=== PATIENT | male | born 1950 | race Caucasian/White ===

== ENCOUNTER 2021-04-12 21:07 | Inpatient (IN) | payer MEDICARE ==
[2021-04-12] MEDS ORDERED: Albuterol Sulfate 2.5 mg/3 ml Neb NEB PRN (23:39)
[2021-04-12] MEDS ORDERED: Apixaban 5 MG TAB PO SCH (23:45)
[2021-04-12] MEDS ORDERED: Furosemide 100 MG/10 ML VIAL SLOW IVP SCH (23:45)
[2021-04-13 00:44] LABS: INR-International Normal Ratio 0.9; PTT 23.9 sec (22.0-33.0); Prothrombin Time 10.3 sec (9.5-12.1)
[2021-04-13 00:46] LABS: Magnesium 2.3 mg/dL (1.6-2.6)
[2021-04-13 00:53] LABS: Troponin I 0.019 ng/mL (< 0.028)
[2021-04-13 04:17] LABS: #Eosinphils 0.2 10x3/uL (0.0-0.5); #Monocytes 1.1 10x3/uL (0.0-1.1); #Neutrophils 6.3 10x3/uL (1.5-8.4); %Basophils 0.4 % (0.0-2.0); %Eosinophils 1.9 % (0.0-6.0); %Lymphocytes 18.4 % (18.0-47.0); %Monocytes 11.8 % (0.0-10.0); %Neutrophils 66.6 % (40.0-75.0); Hemoglobin 13.1 g/dL (13.5-17.5); Mean Corpuscular Hemoglobin 28.5 pg (27.0-33.0); Mean Corpuscular Volume 91.9 fl (81.2-95.1); Mean Platelet Volume 10.4 fl (7.4-10.4); Platelet Count 218 10x3/uL (150-450); RBC Distribution Width 14.6 % (11.5-14.5); Red Blood Cell (RBC) Count 4.59 10x6/uL (4.32-5.72); White Blood Cell (WBC) Count 9.4 10x3/uL (3.5-10.5)
[2021-04-13 04:22] LABS: Anion Gap 15 mmol/L (10-20); BUN (Urea Nitrogen) 31 mg/dL (8.4-25.7); Calc. Creatinine Clearance 139 mL/min (70-130); Calcium 9.5 mg/dL (7.8-10.44); Carbon Dioxide 34 mmol/L (23-31); Chloride 96 mmol/L (98-107); Glucose 144 mg/dL (80-115); Potassium 4.4 mmol/L (3.5-5.1); Sodium 141 mmol/L (136-145)
[2021-04-13 04:30] LABS: Troponin I 0.018 ng/mL (< 0.028)
[2021-04-13] MEDS ORDERED: Lorazepam 2 MG/ML VIAL SLOW IVP SCH ×2 (05:15→05:30)
[2021-04-13] MEDS: Furosemide 100 MG/10 ML VIAL SLOW IVP SCH ×2 (05:32→15:08)
[2021-04-13 07:01] VITALS: BMI 47.8
[2021-04-13] MEDS: Carvedilol 6.25 MG TAB PO SCH ×2 (08:11→17:32)
[2021-04-13] MEDS: busPIRone HCl 15 MG TAB PO SCH ×2 (08:11→21:05)
[2021-04-13] MEDS: Amlodipine 10 MG TAB PO SCH (08:11)
[2021-04-13] MEDS: Aspirin Chewable 81 MG TAB PO SCH (08:11)
[2021-04-13] MEDS: Potassium Chloride 20 MEQ TAB PO SCH ×2 (08:11→17:32)
[2021-04-13] MEDS: Apixaban 5 MG TAB PO SCH ×2 (08:12→21:05)
[2021-04-13] MEDS: Lisinopril 2.5 MG TAB PO SCH (08:12)
[2021-04-13 11:22] LABS: #Eosinphils 0.1 10x3/uL (0.0-0.5); #Monocytes 1.2 10x3/uL (0.0-1.1); #Neutrophils 5.8 10x3/uL (1.5-8.4); %Basophils 0.5 % (0.0-2.0); %Eosinophils 1.6 % (0.0-6.0); %Lymphocytes 17.8 % (18.0-47.0); %Monocytes 13.3 % (0.0-10.0); %Neutrophils 66.2 % (40.0-75.0); Hemoglobin 12.7 g/dL (13.5-17.5); Mean Corpuscular HGB CONC 30.4 g/dL (32.0-36.0); Mean Corpuscular Hemoglobin 28.4 pg (27.0-33.0); Mean Corpuscular Volume 93.5 fl (81.2-95.1); Mean Platelet Volume 10.2 fl (7.4-10.4); Platelet Count 198 10x3/uL (150-450); RBC Distribution Width 14.6 % (11.5-14.5); Red Blood Cell (RBC) Count 4.47 10x6/uL (4.32-5.72); White Blood Cell (WBC) Count 8.8 10x3/uL (3.5-10.5)
[2021-04-13 11:34] LABS: Magnesium 2.4 mg/dL (1.6-2.6)
[2021-04-13] MEDS ORDERED: Metolazone 5 MG TAB PO SCH (13:00)
[2021-04-13] MEDS ORDERED: Metolazone 2.5 MG TAB ONE (13:12)
[2021-04-13] MEDS ORDERED: ALPRAZolam 0.25 MG TAB PO SCH (20:00)
[2021-04-14 05:31] LABS: Anion Gap 15 mmol/L (10-20); BUN (Urea Nitrogen) 34 mg/dL (8.4-25.7); Calc. Creatinine Clearance 113 mL/min (70-130); Calcium 9.5 mg/dL (7.8-10.44); Carbon Dioxide 37 mmol/L (23-31); Chloride 91 mmol/L (98-107); Glucose 184 mg/dL (80-115); Potassium 4.2 mmol/L (3.5-5.1); Sodium 139 mmol/L (136-145)
[2021-04-14] MEDS: Furosemide 100 MG/10 ML VIAL SLOW IVP SCH ×2 (06:18→15:25)
[2021-04-14 08:46] LABS: #Eosinphils 0.2 10x3/uL (0.0-0.5); #Monocytes 1.2 10x3/uL (0.0-1.1); #Neutrophils 6.3 10x3/uL (1.5-8.4); %Basophils 0.3 % (0.0-2.0); %Eosinophils 1.9 % (0.0-6.0); %Lymphocytes 19.2 % (18.0-47.0); Mean Corpuscular HGB CONC 30.7 g/dL (32.0-36.0); Mean Corpuscular Hemoglobin 28.3 pg (27.0-33.0); Mean Corpuscular Volume 92.1 fl (81.2-95.1); Platelet Count 226 10x3/uL (150-450); RBC Distribution Width 14.4 % (11.5-14.5); Red Blood Cell (RBC) Count 4.95 10x6/uL (4.32-5.72); White Blood Cell (WBC) Count 9.6 10x3/uL (3.5-10.5)
[2021-04-14 08:56] LABS: BUN (Urea Nitrogen) 33 mg/dL (8.4-25.7); Calc. Creatinine Clearance 122 mL/min (70-130); Calcium 10.1 mg/dL (7.8-10.44); Glucose 138 mg/dL (80-115); Magnesium 2.5 mg/dL (1.6-2.6)
[2021-04-14 08:57] LABS: Magnesium 2.4 mg/dL (1.6-2.6)
[2021-04-14 09:03] LABS: Anion Gap 16 mmol/L (10-20); Carbon Dioxide 39 mmol/L (23-31); Chloride 87 mmol/L (98-107); Potassium 4.4 mmol/L (3.5-5.1); Sodium 138 mmol/L (136-145)
[2021-04-14] MEDS: Amlodipine 10 MG TAB PO SCH (09:16)
[2021-04-14] MEDS: busPIRone HCl 15 MG TAB PO SCH ×2 (09:16→21:32)
[2021-04-14] MEDS: Apixaban 5 MG TAB PO SCH ×2 (09:16→21:32)
[2021-04-14] MEDS: Aspirin Chewable 81 MG TAB PO SCH (09:16)
[2021-04-14] MEDS: Potassium Chloride 20 MEQ TAB PO SCH ×2 (09:16→18:13)
[2021-04-14] MEDS: Carvedilol 6.25 MG TAB PO SCH ×2 (09:16→18:13)
[2021-04-14] MEDS: Lisinopril 2.5 MG TAB PO SCH (09:17)
[2021-04-14 13:19] LABS: #Eosinphils 0.2 10x3/uL (0.0-0.5); #Monocytes 1.4 10x3/uL (0.0-1.1); #Neutrophils 7.2 10x3/uL (1.5-8.4); %Basophils 0.4 % (0.0-2.0); %Lymphocytes 15.8 % (18.0-47.0); %Monocytes 13.3 % (0.0-10.0); %Neutrophils 67.8 % (40.0-75.0); Hemoglobin 13.4 g/dL (13.5-17.5); Mean Corpuscular HGB CONC 31.5 g/dL (32.0-36.0); Mean Corpuscular Volume 92.2 fl (81.2-95.1); Mean Platelet Volume 10.2 fl (7.4-10.4); Platelet Count 213 10x3/uL (150-450); RBC Distribution Width 14.2 % (11.5-14.5); Red Blood Cell (RBC) Count 4.62 10x6/uL (4.32-5.72); White Blood Cell (WBC) Count 10.7 10x3/uL (3.5-10.5)
[2021-04-14 13:35] LABS: Magnesium 2.3 mg/dL (1.6-2.6)
[2021-04-15] MEDS: Melatonin 3 MG TAB PO PRN ×2 (00:48→20:21)
[2021-04-15 05:36] LABS: Anion Gap 18 mmol/L (10-20); BUN (Urea Nitrogen) 39 mg/dL (8.4-25.7); Calc. Creatinine Clearance 126 mL/min (70-130); Calcium 9.7 mg/dL (7.8-10.44); Carbon Dioxide 35 mmol/L (23-31); Chloride 87 mmol/L (98-107); Glucose 130 mg/dL (80-115); Potassium 4.1 mmol/L (3.5-5.1); Sodium 136 mmol/L (136-145)
[2021-04-15] MEDS: Furosemide 100 MG/10 ML VIAL SLOW IVP SCH (06:18)
[2021-04-15] MEDS: Carvedilol 6.25 MG TAB PO SCH ×2 (08:47→16:02)
[2021-04-15] MEDS: Amlodipine 10 MG TAB PO SCH (08:47)
[2021-04-15] MEDS: Potassium Chloride 20 MEQ TAB PO SCH ×2 (08:47→16:02)
[2021-04-15] MEDS: Apixaban 5 MG TAB PO SCH ×2 (08:48→20:21)
[2021-04-15] MEDS: Aspirin Chewable 81 MG TAB PO SCH (08:48)
[2021-04-15] MEDS: busPIRone HCl 15 MG TAB PO SCH ×2 (08:48→20:21)
[2021-04-15] MEDS: Lisinopril 2.5 MG TAB PO SCH (10:37)
[2021-04-15] MEDS: Furosemide 40 MG TAB PO SCH (14:44)
[2021-04-15 16:45] LABS: Hemoglobin A1c 7.1 % (4.0-6.0)
[2021-04-16 04:01] LABS: Anion Gap 13 mmol/L (10-20); BUN (Urea Nitrogen) 42 mg/dL (8.4-25.7); Calc. Creatinine Clearance 128 mL/min (70-130); Calcium 9.3 mg/dL (7.8-10.44); Carbon Dioxide 37 mmol/L (23-31); Chloride 88 mmol/L (98-107); Glucose 152 mg/dL (80-115); Potassium 4.1 mmol/L (3.5-5.1); Sodium 134 mmol/L (136-145)
[2021-04-16] MEDS: Furosemide 40 MG TAB PO SCH ×2 (09:14→15:49)
[2021-04-16] MEDS: Amlodipine 10 MG TAB PO SCH (09:14)
[2021-04-16] MEDS: Lisinopril 2.5 MG TAB PO SCH (09:17)
[2021-04-16] MEDS: Aspirin Chewable 81 MG TAB PO SCH (09:17)
[2021-04-16] MEDS: busPIRone HCl 15 MG TAB PO SCH ×2 (09:17→20:42)
[2021-04-16] MEDS: Apixaban 5 MG TAB PO SCH ×2 (09:17→20:43)
[2021-04-16] MEDS: Potassium Chloride 20 MEQ TAB PO SCH ×2 (09:18→15:50)
[2021-04-16] MEDS: Carvedilol 6.25 MG TAB PO SCH ×2 (09:18→15:50)
[2021-04-16] MEDS: Melatonin 3 MG TAB PO PRN (23:19)
[2021-04-17] MEDS ORDERED: Mirtazapine 15 MG TAB PO SCH (02:30)
[2021-04-17 05:35] LABS: Anion Gap 14 mmol/L (10-20); BUN (Urea Nitrogen) 32 mg/dL (8.4-25.7); Calc. Creatinine Clearance 143 mL/min (70-130); Calcium 9.1 mg/dL (7.8-10.44); Carbon Dioxide 34 mmol/L (23-31); Chloride 90 mmol/L (98-107); Glucose 182 mg/dL (80-115); Potassium 4.4 mmol/L (3.5-5.1); Sodium 134 mmol/L (136-145)
[2021-04-17] MEDS: Aspirin Chewable 81 MG TAB PO SCH (08:25)
[2021-04-17] MEDS: Lisinopril 2.5 MG TAB PO SCH (08:25)
[2021-04-17] MEDS: Carvedilol 6.25 MG TAB PO SCH ×2 (08:25→16:11)
[2021-04-17] MEDS: Potassium Chloride 20 MEQ TAB PO SCH ×2 (08:25→16:11)
[2021-04-17] MEDS: Amlodipine 10 MG TAB PO SCH (08:25)
[2021-04-17] MEDS: Apixaban 5 MG TAB PO SCH (08:25)
[2021-04-17] MEDS: Furosemide 40 MG TAB PO SCH ×2 (08:26→14:29)
[2021-04-17] MEDS: busPIRone HCl 15 MG TAB PO SCH (08:30)
[2021-04-17 09:42] VITALS: TEMP 97.4
[2021-04-17 16:12] VITALS: BP 129/57
== END 2021-04-17 17:16 | disposition home or self-care (01) | DRG 291 ==
LOC: CSHTELE 21:07
PROVIDERS: ADMIT Family Medicine; ATTEND Hospitalist
DX: I11.0 Hypertensive heart disease with heart failure (principal); I50.33 Acute on chronic diastolic (congestive) heart failure; I48.92 Unspecified atrial flutter; Z68.42 Body mass index [BMI] 45.0-49.9, adult; I48.91 Unspecified atrial fibrillation; J44.9 Chronic obstructive pulmonary disease, unspecified; E66.01 Morbid (severe) obesity due to excess calories; G62.9 Polyneuropathy, unspecified; Z79.51 Long term (current) use of inhaled steroids; Z87.891 Personal history of nicotine dependence; Z79.82 Long term (current) use of aspirin; Z79.899 Other long term (current) drug therapy
CPT/HCPCS: 36415; 71045; 80048; 82607; 82746; 83036; 83735; 83880; 84443; 85025; 85610; 85730; 93306; 94760; 97139; J1940

== ENCOUNTER 2021-12-22 03:38 | Emergency (ER) | payer MEDICARE ==
[2021-12-22] MEDS ORDERED: Furosemide 40 MG/4 ML VIAL ONE (04:46)
[2021-12-22 04:56] LABS: #Eosinphils 0.1 10x3/uL (0.0-0.5); #Monocytes 0.9 10x3/uL (0.0-1.1); #Neutrophils 5.3 10x3/uL (1.5-8.4); %Basophils 0.4 % (0.0-2.0); %Eosinophils 1.1 % (0.0-6.0); %Lymphocytes 23.3 % (18.0-47.0); %Monocytes 10.9 % (0.0-10.0); %Neutrophils 63.2 % (40.0-75.0); Hemoglobin 12.2 g/dL (13.5-17.5); Mean Corpuscular HGB CONC 32.9 g/dL (32.0-36.0); Mean Corpuscular Hemoglobin 28.6 pg (27.0-33.0); Mean Corpuscular Volume 87.1 fl (81.2-95.1); Platelet Count 232 10x3/uL (150-450); RBC Distribution Width 15.8 % (11.5-14.5); Red Blood Cell (RBC) Count 4.26 10x6/uL (4.32-5.72); White Blood Cell (WBC) Count 8.4 10x3/uL (3.5-10.5)
[2021-12-22 05:02] LABS: ALT (SGPT) 15 U/L (8-55); AST (SGOT) 23 U/L (5-34); Albumin 4.1 g/dL (3.4-4.8); Alkaline Phosphatase 109 U/L (40-110); Anion Gap 15 mmol/L (10-20); BUN (Urea Nitrogen) 18 mg/dL (8.4-25.7); Bilirubin, Total 0.3 mg/dL (0.2-1.2); Calc. Creatinine Clearance 0 mL/min (70-130); Calcium 8.5 mg/dL (7.8-10.44); Carbon Dioxide 31 mmol/L (23-31); Chloride 98 mmol/L (98-107); Estimated GFR 83; Globulin 3.3 g/dL (2.4-3.5); Glucose 103 mg/dL (83-110); Potassium 4.3 mmol/L (3.5-5.1); Protein, Total 7.4 g/dL (5.8-8.1); Sodium 140 mmol/L (136-145)
[2021-12-22 05:12] LABS: Platelet Morphology Comment Appears Adequate; RBC Morphology Normal
[2021-12-22 05:13] LABS: Platelet Clumps SLIGHT
[2021-12-22] MEDS ORDERED: Lorazepam 2 MG/ML VIAL ONE (10:54)
[2021-12-22 12:56] LABS: SARS-CoV-2 NAA Rapid Test Not Detected (NotDetected)
== END 2021-12-22 18:08 | disposition short-term general hospital (02) ==
LOC: CSHERS 03:38
DX: M25.571 Pain in right ankle and joints of right foot (principal); I11.0 Hypertensive heart disease with heart failure; I50.9 Heart failure, unspecified; J44.9 Chronic obstructive pulmonary disease, unspecified; Z20.822 Contact with and (suspected) exposure to COVID-19; W18.30XA Fall on same level, unspecified, initial encounter
CPT/HCPCS: 71045; 80053; 83880; 84484; 85025; 93005; 96374; 96375; J1940; J2060; U0002

== ENCOUNTER 2022-01-31 11:42 | Inpatient (IN) | payer OTHER ==
[2022-01-31] MEDS ORDERED: Morphine 4 MG/ML VIAL SLOW IVP PRN ×3 (12:06→12:44)
[2022-01-31] MEDS ORDERED: Lorazepam 2 MG/ML VIAL SLOW IVP PRN ×2 (12:06→12:15)
[2022-01-31] MEDS ORDERED: Lorazepam 2 MG/ML VIAL SLOW IVP SCH (12:15)
[2022-01-31] MEDS: Atropine Sulfate 1% Ophth Soln 5 ml Bottle PO PRN ×7 (12:33→22:15)
[2022-01-31] MEDS: Hyoscyamine Sulfate SL 0.125 mg Tablet SL PRN ×2 (13:12→18:57)
[2022-01-31] MEDS: Morphine 4 MG/ML VIAL SLOW IVP SCH ×10 (13:13→23:44)
[2022-01-31] MEDS: Lorazepam 2 MG/ML VIAL SLOW IVP SCH ×11 (13:42→23:42)
[2022-02-01] MEDS: Morphine 4 MG/ML VIAL SLOW IVP SCH ×9 (00:29→09:03)
[2022-02-01] MEDS: Hyoscyamine Sulfate SL 0.125 mg Tablet SL PRN ×2 (00:29→06:12)
[2022-02-01] MEDS: Lorazepam 2 MG/ML VIAL SLOW IVP SCH ×9 (00:29→08:30)
[2022-02-01] MEDS: Atropine Sulfate 1% Ophth Soln 5 ml Bottle PO PRN ×5 (03:22→12:25)
[2022-02-01 06:02] VITALS: BMI 43.9
[2022-02-01] MEDS ORDERED: Morphine 4 MG/ML VIAL SLOW IVP PRN (10:15)
[2022-02-01] MEDS ORDERED: Lorazepam 2 MG/ML VIAL SLOW IVP PRN (10:15)
[2022-02-01] MEDS: Lorazepam 2 MG/ML VIAL SLOW IVP PRN (19:52)
[2022-02-02] MEDS: Lorazepam 2 MG/ML VIAL SLOW IVP PRN ×4 (04:07→12:55)
[2022-02-02 09:13] VITALS: TEMP 98.2
[2022-02-02 13:14] VITALS: BP 178/95
== END 2022-02-02 13:00 | disposition hospice, inpatient (51) | DRG 951 ==
LOC: CSHICU 11:42
PROVIDERS: ADMIT Family Medicine; ATTEND Family Medicine
DX: Z51.5 Encounter for palliative care (principal); G93.41 Metabolic encephalopathy; J96.21 Acute and chronic respiratory failure with hypoxia; J96.22 Acute and chronic respiratory failure with hypercapnia; I50.33 Acute on chronic diastolic (congestive) heart failure; J15.212 Pneumonia due to Methicillin resistant Staphylococcus aureus; I48.92 Unspecified atrial flutter; N17.9 Acute kidney failure, unspecified; Z68.41 Body mass index [BMI] 40.0-44.9, adult; E66.9 Obesity, unspecified; J44.9 Chronic obstructive pulmonary disease, unspecified
CPT/HCPCS: 94760; J2060; J2270